=== PATIENT | female | born 1995 | race Two or more races ===

== ENCOUNTER 2022-06-03 19:59 | Emergency (ER) | payer SELFPAY ==
[2022-06-03] MEDS ORDERED: KETOROLAC 30 MG/ML INJ ONE (20:39)
[2022-06-03 20:53] LABS: Urine Blood Negative (Negative); Urine Glucose Negative (Negative); Urine Protein Negative (Negative); Urine Specific Gravity 1.025 (1.005-1.030); Urine pH 6.5 (5.0-7.0)
[2022-06-03 21:30] LABS: SARS-COV-2 RT PCR NEGATIVE (NEGATIVE)
--- NOTE | 2022-06-03 21:35 | RAD REPORT ---
EXAM DESCRIPTION: RAD - Chest Single View - 06/03/2022 9:21 pm CLINICAL HISTORY: COUGH Chest pain. COMPARISON: No comparisons FINDINGS: Portable technique limits examination quality. The lungs are grossly clear. The heart is normal in size. No displaced fractures. IMPRESSION: No acute intrathoracic process suspected.
--- NOTE | 2022-06-03 21:50 | EDPHYS ---
Physician Documentation [facility] Name: Mamadou Beasley Age: 26 yrs Sex: Female : 1995 Arrival Date: 06/03/2022 Time: 20:04 Bed 17 Private MD: ED Physician Negrito Bernard HPI: 06/03 20:18 This 26 yrs old Female presents to ER via Unassigned with complaints of Chest Pain, rt Sneezing, Cough, Headache. 20:18 The patient or guardian reports chest pain that is located primarily in the substernal rt area. The pain does not radiate. Associated signs and symptoms: Pertinent positives: cough. The chest pain is described as aching. Modifying factors: The symptoms are alleviated by nothing. the symptoms are aggravated by cough. Severity of pain: At its worst the pain was mild. Patient presents to the ED with cough, congestion, headache as well as a pleuritic chest pain starting yesterday. She states that NyQuil did not adequately relieve her symptoms today. She denies other acute complaints at this time. Pain is aching nature, nonradiating, no other aggravating or alleviating factors.. 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 - Social history:: Smoking status: Patient denies any tobacco usage or history of. ROS: 20:18 Constitutional: Negative for fever, chills, and weight loss, Eyes: Negative for injury, rt pain, redness, and discharge, Neck: Negative for injury, pain, and swelling, Abdomen/GI: Negative for abdominal pain, nausea, vomiting, diarrhea, and constipation, MS/Extremity: Negative for injury and deformity, Skin: Negative for injury, rash, and discoloration, Neuro: Negative for headache, weakness, numbness, tingling, and seizure, Psych: Negative for depression, anxiety, suicide ideation, homicidal ideation, and hallucinations. 20:18 ENT: Positive for rhinorrhea, sore throat. 20:18 Cardiovascular: Positive for chest pain, Negative for edema. 20:18 Respiratory: Positive for cough, Negative for shortness of breath. Exam: 20:18 Constitutional: This is a well developed, well nourished patient who is awake, alert, rt and in no acute distress. Head/Face: Normocephalic, atraumatic. Eyes: Pupils equal round and reactive to light, extra-ocular motions intact. Lids and lashes normal. Conjunctiva and sclera are non-icteric and not injected. Cornea within normal limits. Periorbital areas with no swelling, redness, or edema. ENT: Nares patent. No nasal discharge, no septal abnormalities noted. Tympanic membranes are normal and external auditory canals are clear. Oropharynx with no redness, swelling, or masses, exudates, or evidence of obstruction, uvula midline. Mucous membranes moist. Chest/axilla: Normal chest wall appearance and motion. Nontender with no deformity. No lesions are appreciated. Cardiovascular: Regular rate and rhythm with a normal S1 and S2. No gallops, murmurs, or rubs. Normal PMI, no JVD. No pulse deficits. Respiratory: Lungs have equal breath sounds bilaterally, clear to auscultation and percussion. No rales, rhonchi or wheezes noted. No increased work of breathing, no retractions or nasal flaring. Abdomen/GI: Soft, non-tender, with normal bowel sounds. No distension or tympany. No guarding or rebound. No evidence of tenderness throughout. Skin: Warm, dry with normal turgor. Normal color with no rashes, no lesions, and no evidence of cellulitis. MS/ Extremity: Pulses equal, no cyanosis. Neurovascular intact. Full, normal range of motion. Neuro: Awake and alert, GCS 15, oriented to person, place, time, and situation. Cranial nerves II-XII grossly intact. Motor strength 5/5 in all extremities. Sensory grossly intact. Cerebellar exam normal. Normal gait. Psych: Awake, alert, with orientation to person, place and time. Behavior, mood, and affect are within normal limits. 20:58 ECG was reviewed by the Attending Physician. rt Vital Signs: 20:22 BP 133 / 96; Pulse 80; Resp 18; Temp 98.6; Pulse Ox 100% ; Weight 80.74 kg; Height 5 vc1 ft. 7 in. (170.18 cm); Pain 7/10; 21:30 BP 131 / 89; Pulse 82; Resp 18; Pulse Ox 99% ; Pain 4/10; pf1 22:30 BP 134 / 87; Pulse 86; Resp 18; Temp 98.2; Pulse Ox 99% ; Pain 2/10; pf1 20:22 Body Mass Index 27.88 (80.74 kg, 170.18 cm) vc1 MDM: 20:13 Patient medically screened. rt 21:51 Differential diagnosis: pleurisy, pneumonia, pneumothorax, pulmonary embolus, thoracic rt aortic disection. Data reviewed: vital signs, nurses notes, lab test result(s), EKG, radiologic studies. 06/03 20:18 Order name: COVID-19/FLU A+B; Complete Time: 21:40 rt 06/03 20:53 Order name: Urine Dipstick-Ancillary; Complete Time: 21:40 EDMS 06/03 20:18 Order name: Chest Single View XRAY; Complete Time: 21:40 rt 06/03 20:18 Order name: EKG; Complete Time: 20:19 rt 06/03 20:18 Order name: EKG - Nurse/Tech; Complete Time: 20:56 rt EC:58 Rate is 71 beats/min. Rhythm is regular, Normal Sinus Rhythm with No ectopy. QRS Davin rt is Normal. AL interval is normal. QRS interval is normal. QT interval is normal. No Q waves. T waves are Normal. No ST changes noted. Clinical impression: Normal ECG. Administered Medications: 20:55 Drug: Ketorolac 30 mg Route: IM; Site: right deltoid; pf1 21:50 Follow up: Response: No adverse reaction; Pain is decreased; RASS: Alert and Calm (0) pf1 Disposition Summary: 06/03/22 21:50 Discharge Ordered Location: Home rt Problem: new rt Symptoms: have improved rt Condition: Stable rt Diagnosis - Acute upper respiratory infection, unspecified rt Followup: rt - With: Private Physician - When: 2 - 3 days - Reason: Discharge Instructions: - Discharge Summary Sheet rt - Viral Respiratory Infection rt Forms: - Medication Reconciliation Form rt - Thank You Letter rt - Antibiotic Education rt - Work release form rt - Prescription Opioid Use rt Signatures: Dispatcher [employer] EDMS Carolina Fishman RN RN vc1 Negrito Bernard MD MD rt Lisa baez, RN RN pf1 Corrections: (The following items were deleted from the chart) 20:26 20:26 Home Meds: Unable to obtain; vc1 vc1
--- NOTE | 2022-06-03 21:50 | ER ---
Nurse's Notes [facility] Name: Mamadou Beasley Age: 26 yrs Sex: Female : 1995 Arrival Date: 06/03/2022 Time: 20:04 Bed 17 Private MD: Diagnosis: Acute upper respiratory infection, unspecified Presentation: 06/03 20:22 Chief complaint: Patient states: "For the last 2 nights I have had a cough, sneezing, vc1 and a headache. Today I started having chest pain when I take deep breaths.". Coronavirus screen: Vaccine status: Patient reports receiving the 2nd dose of the covid vaccine. Pfizer cough unrelated to allergies, headache, Client presents with at least one sign or symptom that may indicate coronavirus-19. Standard/surgical mask placed on the client. Provider contacted for isolation considerations. At this time, the client does not indicate any symptoms associated with coronavirus-19. Ebola Screen: No symptoms or risks identified at this time. Initial Sepsis Screen: Does the patient meet any 2 criteria? No. Patient's initial sepsis screen is negative. Does the patient have a suspected source of infection? Yes: Productive cough/pneumonia. Risk Assessment: Do you want to hurt yourself or someone else? Patient reports no desire to harm self or others. Onset of symptoms was June 01, 2022. 20:22 Method Of Arrival: Ambulatory vc1 20:22 Acuity: ARAMIS 3 vc1 Triage Assessment: 20:24 General: Appears in no apparent distress. uncomfortable, ill, Behavior is calm, vc1 cooperative, appropriate for age. Pain: Complains of pain in chest Pain does not radiate. Pain currently is 7 out of 10 on a pain scale. Aggravated by deep breaths. EENT: No deficits noted. Neuro: Reports headache. Cardiovascular: Reports chest pain, Chest pain is described as mild, quality is sharp, episodes are intermittent is aggravated by breathing. Respiratory: Reports cough that is non-productive, pain with respiration Airway is patent Respiratory effort is even, unlabored, Respiratory pattern is regular, symmetrical. GI: No deficits noted. No signs and/or symptoms were reported involving the gastrointestinal system. : No deficits noted. No signs and/or symptoms were reported regarding the genitourinary system. Derm: No deficits noted. No signs and/or symptoms reported regarding the dermatologic system. Musculoskeletal: No deficits noted. No signs and/or symptoms reported regarding the musculoskeletal system. 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 - Social history:: Smoking status: Patient denies any tobacco usage or history of. Screenin:24 [facility] ED Fall Risk Assessment (Adult) History of falling in the last 3 months, vc1 including since admission No falls in past 3 months (0 pts) Confusion or Disorientation No (0 pts) Intoxicated or Sedated No (0 pts) Impaired Gait No (0 pts) Mobility Assist Device Used No (0 pt) Altered Elimination No (0 pt) Score/Fall Risk Level 0 - 2 = Low Risk Oriented to surroundings, Maintained a safe environment, Educated pt \\T\\ family on fall prevention, incl call for assistance when getting out of bed. Abuse screen: Denies threats or abuse. Nutritional screening: No deficits noted. Tuberculosis screening: No symptoms or risk factors identified. Assessment: 20:27 Pain: Pain began suddenly, today. vc1 20:30 General: Appears in no apparent distress. comfortable, well groomed, well developed, pf1 Behavior is calm, cooperative, appropriate for age, quiet. 20:30 Pain: Complains of pain in head and chest Pain currently is 7 out of 10 on a pain pf1 scale. Neuro: Level of Consciousness is awake, alert, obeys commands, Oriented to person, place, time, situation, Reports headache frontal area. Cardiovascular: Chest pain began 1 day ago. Respiratory: Airway is patent Respiratory effort is even, unlabored, Breath sounds are clear bilaterally. Respiratory: Reports cough that is non-productive, pain with cough. GI: No deficits noted. No signs and/or symptoms were reported involving the gastrointestinal system. : No deficits noted. No signs and/or symptoms were reported regarding the genitourinary system. EENT: No deficits noted. No signs and/or symptoms were reported regarding the EENT system. Vital Signs: 20:22 BP 133 / 96; Pulse 80; Resp 18; Temp 98.6; Pulse Ox 100% ; Weight 80.74 kg; Height 5 vc1 ft. 7 in. (170.18 cm); Pain 7/10; 21:30 BP 131 / 89; Pulse 82; Resp 18; Pulse Ox 99% ; Pain 4/10; pf1 22:30 BP 134 / 87; Pulse 86; Resp 18; Temp 98.2; Pulse Ox 99% ; Pain 2/10; pf1 20:22 Body Mass Index 27.88 (80.74 kg, 170.18 cm) vc1 ED Course: 20:04 Patient arrived in ED. ja2 20:12 Negrito Bernard MD is Attending Physician. rt 20:14 Lisa baez, REJI is Primary Nurse. pf1 20:24 Triage completed. vc1 20:26 Arm band placed on right wrist. vc1 20:27 Patient has correct armband on for positive identification. Placed in gown. Bed in low vc1 position. 20:27 Patient maintains SpO2 saturation greater than 95% on room air. vc1 20:30 Client placed on continuous cardiac and pulse oximetry monitoring. NIBP monitoring pf1 applied. 20:40 No provider procedures requiring assistance completed. pf1 21:23 Chest Single View XRAY In Process Unspecified. EDMS 22:30 Patient did not have IV access during this emergency room visit. pf1 Administered Medications: 20:55 Drug: Ketorolac 30 mg Route: IM; Site: right deltoid; pf1 21:50 Follow up: Response: No adverse reaction; Pain is decreased; RASS: Alert and Calm (0) pf1 Medication: 20:27 VIS not applicable for this client. vc1 Outcome: 21:50 Discharge ordered by . rt 22:30 Patient left the ED. vc1 22:30 Discharged to home ambulatory. pf1 22:30 Condition: improved pf1 22:30 Discharge instructions given to patient, Instructed on discharge instructions, follow up and referral plans. Demonstrated understanding of instructions, follow-up care, medications. Signatures: Dispatcher [employer] EDMS RossBetsy ja2 Carolina Fishman RN RN vc1 Negrito Bernard MD MD rt Lisa baez, REJI RN pf1 Corrections: (The following items were deleted from the chart) 20:26 20:26 Home Meds: Unable to obtain; vc1 vc1
[2022-06-03 22:40] VITALS: BP 133/96; TEMP 98.6; O2SAT 100
--- NOTE | 2022-06-04 16:05 | EKG ---
Test Date: 2022-06-03 Test Time: 20:52:43 Packing And Final Assembly Supervisor: LIAN MEASUREMENT RESULTS: Intervals: Rate: 71 GA: 168 QRSD: 88 QT: 388 QTc: 421 Beccaria: P: 17 GA: 168 QRS: 68 T: 35 INTERPRETIVE STATEMENTS: Normal sinus rhythm Normal ECG No previous ECG available for comparison Electronically Signed On 06-04-22 16:03:35 [employer] by Kaden Silveira
== END 2022-06-03 22:30 | disposition home or self-care (01) ==
LOC: ER 19:59
DX: J06.9 Acute upper respiratory infection, unspecified (principal); Z20.822 Contact with and (suspected) exposure to COVID-19
CPT/HCPCS: 0240U; 71045; 81003; 93005; 96372; 99284